=== PATIENT | male | born 1980 | race African-American/Black ===

== ENCOUNTER 2017-09-16 11:01 | Emergency (ER) | payer MEDICAID ==
[~2017-09-16] VITALS: Ht 182.9 cm; Wt 5.7 kg
[2017-09-16 11:26] VITALS: BP 128/77
== END 2017-09-16 12:20 | disposition home or self-care (01) ==
LOC: ER 11:01
DX: M79.604 Pain in right leg (principal); F17.210 Nicotine dependence, cigarettes, uncomplicated; Z48.01 Encounter for change or removal of surgical wound dressing

== ENCOUNTER 2023-07-22 11:27 | Emergency (ER) | payer MEDICAID ==
[~2023-07-22] VITALS: Ht 185.4 cm; Wt 87.0 kg
[2023-07-22 13:44] VITALS: BP 100/62; PULSE 94; RESP 16; TEMP 97.6; O2SAT 97
[2023-07-22 14:36] LABS: Anion Gap 2 (5-15); Carbon Dioxide 32 mmol/L (20-30); Chloride 105 mmol/L (98-107); Potassium 4.5 mmol/L (3.5-5.1); Sodium 139 mmol/L (136-145)
[2023-07-22 14:37] LABS: Calcium 9.8 mg/dL (8.5-10.1)
[2023-07-22 14:39] LABS: Basophils # (auto) 0.1 10 ^3/uL (0-0.2); Basophils % (auto) 1.2 % (0.0-2.0); Eosinophils # (auto) 0.1 10 ^3/uL (0-0.8); Eosinophils % (auto) 0.6 % (0.0-7.0); Hematocrit 47.6 % (41.0-53.0); Lymphocytes # (auto) 3.2 10 ^3/uL (0.4-5.4); Lymphocytes % (auto) 28.3 % (10.0-50.0); Mean Corpuscular Hemoglobin 32.6 pg (28.0-32.0); Mean Corpuscular Hgb Conc. 33.5 g/dL (32.0-36.0); Mean Corpuscular Volume 97.3 fL (80.0-100.0); Monocytes # (auto) 1.1 10 ^3/uL (0-1.3); Monocytes % (auto) 9.6 % (0.0-12.0); Neutrophils # (auto) 6.8 10 ^3/uL (1.6-8.6); Neutrophils % (auto) 60.3 % (37.0-80.0); Nucleated Red Blood Cells % 0.2 %; Red Blood Cells 4.89 10^6/uL (4.5-5.90); Red Cell Distribution Width 13.6 % (11.8-14.3); White Blood Cell 11.2 10^3/uL (4.4-10.8)
[2023-07-22 14:41] LABS: Glucose 91 mg/dL (74-106)
[2023-07-22 14:42] LABS: BUN/Creatinine Ratio 5.8 (10.0-20.0); Blood Urea Nitrogen < 5 mg/dL (9-23)
[2023-07-22] MEDS: IOHEXOL 300 MG/ML 100ML BOTTLE IJ ONE (16:36)
== END 2023-07-22 18:09 | disposition home or self-care (01) ==
LOC: ER 11:27
DX: R22.0 Localized swelling, mass and lump, head (principal); M79.89 Other specified soft tissue disorders; F17.210 Nicotine dependence, cigarettes, uncomplicated
CPT/HCPCS: 36415; 70488; 80048; 85025; 99285; Q9967